=== PATIENT | male | born 1970 | race Caucasian/White ===

== ENCOUNTER 2020-11-05 20:35 | Emergency (ER) | payer OTHER ==
[~2020-11-05] VITALS: Ht 167.6 cm; Wt 93.0 kg
--- NOTE | 2020-11-05 20:51 | NUR ---
FIRST CONTACT: PT SAYS HE DRINKS A LOT, AND COULDN'T GET INTO THE [facility] TO GET A HANDLE OF VODKA SINCE HE DRINKS A HANDLE OF VODKA A DAY. AND HASN'T DRANK SINCE YESTERDAY, COMPLAINING OF SWOLLEN FEET. PT TO BED VIA WHEELCHAIR, STABLE GAIT TO BED, ATTACHED TO MONITORS AND POSTIONED TO COMFORT. VSS. RICHARDSON.
[2020-11-05] MEDS ORDERED: ONDANSETRON 2MG/ML, 2ML ONE (21:20)
[2020-11-05] MEDS ORDERED: LORazepam 2 MG/ML, 1ML ONE (21:21)
[2020-11-05 21:23] LABS: BASOPHILS % (AUTO) 2 % (0-1); EOSINOPHILS % (AUTO) 0 % (1-7); LYMPHOCYTES % (AUTO) 31 % (22-44); MEAN CORPUSCULAR HEMOGLOBIN 30.5 pg (27.5-34.5); MEAN CORPUSCULAR HGB CONC 33.6 g/dL (33.2-36.2); MEAN PLATELET VOLUME 7.1 fL (7.4-10.4); MONOCYTES % (AUTO) 9 % (2-9); NEUTROPHILS % (AUTO) 58 % (42-75); PLATELET COUNT 295 x10^3/uL (130-400); RED BLOOD COUNT 4.22 x10^6/uL (4.38-5.82); RED CELL DISTRIBUTION WIDTH 15.6 % (9.4-14.8)
[2020-11-05 21:28] LABS: ALBUMIN 3.6 g/dL (3.4-5.0); ANION GAP 14 mmol/L (5-15); CHLORIDE 104 mmol/L (98-107); CREATININE 0.96 mg/dL (0.7-1.3)
[2020-11-05] MEDS ORDERED: PLEASE ENTER ALLERGIES MC SCH (21:30)
[2020-11-05] MEDS ORDERED: LORazepam 2 MG/ML, 1ML IVPush ONE (21:30)
[2020-11-05] MEDS ORDERED: ONDANSETRON 2MG/ML, 2ML IVPush ONE (21:30)
[2020-11-05] MEDS ORDERED: SODIUM CHLORIDE 0.9% 1,000ML IVBOLUS ONE (21:30)
[2020-11-05] MEDS ORDERED: SODIUM CHLORIDE FLUSH 10ML SYR IVF ONE (21:30)
[2020-11-05] MEDS ORDERED: THIAMINE 100 MG in SODIUM CHLORIDE 0.9% 50 ML IVPB ONE (21:30)
[2020-11-05] MEDS ORDERED: LORazepam 2 MG/ML, 1ML IVPush PRN (21:30)
[2020-11-05 21:33] LABS: ALANINE AMINOTRANSFERASE 127 U/L (12-78); ALKALINE PHOSPHATASE 134 U/L (45-117); BILIRUBIN,TOTAL 0.3 mg/dL (0.2-1.0)
--- NOTE | 2020-11-05 22:10 | NUR ---
PT ASLEEP WITH EVEN AND UNLABORED RESPIRATIONS. THUAN. DEBRA.
[2020-11-05 22:58] VITALS: BP 130/94
--- NOTE | 2020-11-05 22:58 | NUR ---
task rn: Patient given discharge instructions and they have confirmed that they understand the instructions. Patient ambulatory with steady gait. NAD, all questions answered appropriately, denies additional needs at this time. No personal belongings left in room after discharge. provided oce chips for comfort
== END 2020-11-05 23:08 | disposition home or self-care (01) ==
LOC: ED 22:54
DX: F10.220 Alcohol dependence with intoxication, uncomplicated (principal); R00.0 Tachycardia, unspecified; R11.2 Nausea with vomiting, unspecified; Y90.0 Blood alcohol level of less than 20 mg/100 ml
CPT/HCPCS: 36415; 80053; 80320; 83690; 85025; 93005; 96365; 96375; 99284; J2060; J2405; J3411; J7030; G0480